=== PATIENT | female | born 1995 | race Two or more races ===

== ENCOUNTER 2020-10-23 13:43 | Emergency (ER) | payer OTHER ==
[~2020-10-23] VITALS: Ht 160 cm; Wt 79.4 kg
[2020-10-23] MEDS ORDERED: ARMOUR THYROID90 MG (14:20)
[2020-10-23] MEDS ORDERED: BREO ELLIPTA I1 EACH (14:22)
[2020-10-23] MEDS ORDERED: PROAIR DIGIHAL90 MCG (14:22)
== END 2020-10-23 19:19 | disposition home or self-care (01) ==
LOC: ER 13:43
DX: L53.8 Other specified erythematous conditions (principal); L29.8 Other pruritus; T78.1XXA Other adverse food reactions, not elsewhere classified, initial encounter; X58.XXXA Exposure to other specified factors, initial encounter